=== PATIENT | female | born 1970 | race Caucasian/White ===

== ENCOUNTER 2020-04-12 10:10 | Emergency (ER) | payer MEDICARE, OTHER, SELFPAY ==
[2020-04-12] MEDS: TETANUS,DIPHTHERIA,AC PERTUSSIS ADULT (0.5 ML) BOOSTRIX IM (10:34)
[2020-04-12 10:35] VITALS: BP 117/62; PULSE 68; RESP 18; TEMP 36.7; O2SAT 100
--- NOTE | 2020-04-12 10:44 | ED.WOUNDLAC ---
HPI - Wound/Laceration General Chief Complaint: Wound/Laceration Stated Complaint: laceration right thumb Time Seen by Provider: 04/12/20 10:15 Source: patient and RN notes reviewed Mode of arrival: ambulatory Limitations: no limitations History of Present Illness HPI narrative: 49-year-old female presents concern for laceration to the first digit of the left hand that she sustained as prior to arrival, while she was pulling apart metal shelves she cut her hand on a metal shelf. Reports she is not up-to-date on her tetanus vaccination. She denies any decreased sensation, strength, range of motion of the digit. Denies any uncontrolled bleeding. Extremity Location: Left: hand Related Data Home Medications Medication Instructions Recorded Confirmed estradiol 1 mg PO DAILY 04/12/20 04/12/20 venlafaxine 75 mg PO DAILY 04/12/20 04/12/20 Allergies Allergy/AdvReac Type Severity Reaction Status Date / Time No Known Allergies Allergy Verified 04/12/20 10:15 Review of Systems Review of Systems: Narrative: CONSTITUTIONAL: Denies malaise, chills, sweats, or fever. SKIN: Reports laceration of first digit of left hand MUSCULOSKELETAL: Denies muscle skeletal pain, decreased range of motion NEUROLOGIC: Denies numbness, weakness All systems reviewed & are unremarkable except as noted in HPI and below PMFSH Social History Social History Gender identity (if verbalized by the patient): Female Comments At time of signature, agree with nursing past medical, surgical, social and family history. There is no relevant family history pertinent to the presenting complaint Exam Narrative: Exam Narrative: GENERAL: Well-appearing, well-nourished, and in no acute distress. HEAD: Normocephalic EYES: PERRLA, conjunctivae clear NECK: Supple. CHEST: Speaks in full sentences. No respiratory distress. HEART: Regular rate and rhythm. Normal and equal peripheral pulses. EXTREMITIES: Left hand and digits of hand have normal strength and sensation. 5/5 strength with digit flexion, extension. Range of motion normal. No clubbing, cyanosis, or edema noted. No tenderness. Normal digital cascade with flexion of fingers, median, ulnar and radial nerve intact. Normal sensation of each side of finger. Can perform 'okay' sign, 'cross over finger test of index and middle fingers' and 'thumbs up' sign. No scissoring. Normal thumb opposition. Good capillary refill and radial pulse. Distal capillary refill less than 3 seconds. SKIN: Warn, dry, intact, pink. 1.5 cm linear laceration, shallow into the subcutaneous tissue noted beneath the first digit of the left hand on the lateral edge, edges approximated, hemostasis achieved. NEURO: Alert and oriented x3. PSYCH: Normal mood and affect Course Course Emergency Course: Patient is aware of diagnosis, understands and agrees to treatment plan. Anticipatory guidance given. Patient agrees to follow-up as directed and is aware of reasons to seek care at the emergency department. Portions of this record may have been created with voice recognition software Vital Signs Vital signs: Vital Signs Temperature 98.0 F 04/12/20 10:35 Pulse Rate 68 04/12/20 10:35 Respiratory Rate 18 04/12/20 10:35 Blood Pressure 117/62 04/12/20 10:35 Pulse Oximetry 100 04/12/20 10:35 Temperature 98.0 F 04/12/20 10:35 Pulse Rate 68 04/12/20 10:35 Respiratory Rate 18 04/12/20 10:35 Blood Pressure 117/62 04/12/20 10:35 Pulse Oximetry 100 04/12/20 10:35 Reviewed. Procedures Laceration Laceration 1: Date: 04/12/20 Time: 10:25 Site: hand Side (If applicable): left Size (cm): 1.5 Description: linear Depth: simple, single layer Pre-repair: wound explored and irrigated ====== Skin Level ====== Skin layer closed with: dermabond ====== Subcutaneous Layer ====== ====== Muscle Layer ====== ====== Tendon Layer ====== MDM -
== END 2020-04-12 10:50 | disposition home or self-care (01) ==
PROVIDERS: Emergency Provider Nurse Practitioner
DX: S61.012A Laceration without foreign body of left thumb without damage to nail, initial encounter (principal); W45.8XXA Other foreign body or object entering through skin, initial encounter; Z23 Encounter for immunization; J45.909 Unspecified asthma, uncomplicated
CPT/HCPCS: 12001; 90471; 90715; 99212; G0463

== ENCOUNTER 2021-08-04 10:59 | Emergency (ER) | payer MEDICARE, OTHER, SELFPAY ==
--- NOTE | ~2021-08-04 | XR_ITS ---
XR ankle RT min 3V, XR ankle LT min 3V 08/04/2021 11:39 Indication: Bilateral ankle pain after fall Procedure: 4 views each ankle Comparison: No prior studies for comparison. Findings: No fracture, subluxation or dislocation. There is anatomic alignment. Ankle mortise intact. Small degenerative calcaneal enthesophytes. Impression: 1: No acute fracture. Reviewed, dictated and finalized at location B. Impression: 1: No acute fracture. Impression: 1: No acute fracture.
[2021-08-04 11:13] VITALS: BP 135/81; PULSE 79; RESP 16; TEMP 36.4; O2SAT 98
--- NOTE | 2021-08-04 11:35 | PC.NURSE ---
pt in xray
--- NOTE | 2021-08-04 12:38 | ED.LOWEXIN ---
HPI - Extremity Injury (Lower) General Chief Complaint: Extremity Injury, Lower Stated Complaint: fall, bilateral ankle injury Time Seen by Provider: 08/04/21 11:35 History of Present Illness HPI Narrative: 51-year-old female presents to the emergency room for evaluation of bilateral ankle pain. Patient states that she fell down 3 stairs, resulting in inversion injuries to both ankles. Patient states the left ankle is more painful than the right ankle. Related Data Home Medications Medication Instructions Recorded Confirmed estradiol 1 mg PO DAILY 04/12/20 04/12/20 venlafaxine 37.5 mg PO DAILY 08/04/21 Allergies Allergy/AdvReac Type Severity Reaction Status Date / Time No Known Allergies Allergy Verified 08/04/21 11:12 Review of Systems Review of Systems: CONSTITUTIONAL: Denies fever, chills, or sweats. EYES: Denies visual changes, redness, or discharge. ENT: Denies rhinorrhea, congestion, sore throat, or otalgia. CARDIOVASCULAR: Denies chest pain, palpitations, or edema. RESPIRATORY: Denies cough or dyspnea. GASTROINTESTINAL: Denies abdominal pain, nausea, vomiting, or diarrhea. GENITOURINARY: Denies dysuria or hematuria. SKIN: Denies rash or itching. MUSCULOSKELETAL: Reports bilateral ankle pain NEUROLOGIC: Denies headache, numbness, dizziness, or weakness. PSYCHIATRIC: Denies anxiety or depression. [facility] Social History Social History Gender identity (if verbalized by the patient): Female Exam Narrative: GENERAL: Well-appearing, well-nourished, and in no acute distress. HEAD: Normocephalic, atraumatic. EYES: PERRLA and EOMI. CHEST: Clear to auscultation. No respiratory distress. No wheezes rales or rhonchi HEART: Regular rate and rhythm. No murmur heard. Normal peripheral pulses. EXTREMITIES: left ankle: Tenderness and swelling lateral malleolus, no joint laxity, no bony abnormality, neurovascular is intact distally. Right ankle: Tenderness over the medial ligament, no bony tenderness or abnormality, no joint laxity neurovascular is intact distally SKIN: Warm, dry, no rash. NEURO: No focal deficits. Alert and oriented x3. PSYCH: Normal mood and affect. Course Vital Signs Vital signs: Vital Signs Temperature 36.4 C 08/04/21 11:13 Pulse Rate 79 08/04/21 11:13 Respiratory Rate 16 08/04/21 11:13 Blood Pressure 135/81 08/04/21 11:13 Pulse Oximetry 98 08/04/21 11:13 Temperature 36.4 C 08/04/21 11:13 Pulse Rate 79 08/04/21 11:13 Respiratory Rate 16 08/04/21 11:13 Blood Pressure 135/81 08/04/21 11:13 Pulse Oximetry 98 08/04/21 11:13 Discharge Plan Discharge Clinical Impression: Ankle sprain and strain Patient Disposition: Home, Self-Care Condition: Stable Instructions: Antibiotic Form Prescriptions: New naproxen 500 mg tablet 500 mg PO BID Qty: 20 RF: 0 No Action estradiol 1 mg tablet 1 mg PO DAILY RF: 0 venlafaxine 37.5 mg Capsule,Extended Release 24hr 37.5 mg PO DAILY RF: 0 Follow-up/Referrals: PHYSICIAN,[facility] [Primary Care Provider] -
== END 2021-08-04 12:50 | disposition home or self-care (01) ==
PROVIDERS: Emergency Provider Nurse Practitioner Family
DX: S93.402A Sprain of unspecified ligament of left ankle, initial encounter (principal); S96.912A Strain of unspecified muscle and tendon at ankle and foot level, left foot, initial encounter; S93.401A Sprain of unspecified ligament of right ankle, initial encounter; S96.911A Strain of unspecified muscle and tendon at ankle and foot level, right foot, initial encounter; W10.9XXA Fall (on) (from) unspecified stairs and steps, initial encounter
CPT/HCPCS: 73610; 99284

== ENCOUNTER 2023-01-24 09:49 | Outpatient (CLI) | payer MEDICARE, OTHER, SELFPAY ==
--- NOTE | ~2023-01-24 | XR_ITS ---
EXAMINATION: XR shoulder LT min 2V INDICATION: Chronic left shoulder pain TECHNIQUE: Four views of the left shoulder are submitted. COMPARISON: None FINDINGS: Normal alignment. No fracture. Glenohumeral and acromioclavicular joint spaces are normal. Soft tissues are unremarkable. IMPRESSION: 1. No acute osseous abnormality. Reviewed, dictated and finalized at location B. ROOM DANCER
== END 2023-01-24 09:50 | disposition home or self-care (01) ==
LOC: CHSIMG 09:53
PROVIDERS: PCP Nurse Practitioner Family; Visit Provider Nurse Practitioner Family
DX: M25.512 Pain in left shoulder (principal)
CPT/HCPCS: 73030

== ENCOUNTER 2023-01-30 07:34 | Outpatient (CLI) | payer MEDICARE, OTHER, SELFPAY ==
--- NOTE | ~2023-01-30 | US_ITS ---
US right upper quadrant DATE: 01/30/2023 08:05 INDICATION: Elevated liver enzymes TECHNIQUE: Real-time imaging of liver, pancreas, gallbladder COMPARISON: None FINDINGS: There is increased hepatic parenchymal echogenicity which may indicate hepatic steatosis. N o hepatic or pancreatic space-occupying mass lesion is detected. Normal hepatopedal portal venous barrera w direction. No gallstones or gallbladder wall thickening. Negative sonographic Beth's sign. The common bile duct measures 2.9 mm, normal. IMPRESSION: Suggestion of hepatic steatosis; otherwise unremarkable examination Reviewed, dictated and finalized at Location A. Reviewed, dictated and finalized at location L. D ROUTE BUS OPERATOR
--- NOTE | ~2023-01-30 | MM_ITS ---
EXAMINATION: MM screening adalgisa BI w joshua HISTORY: Screening mammogram TECHNIQUE: Craniocaudal and mediolateral oblique 3-D tomosynthesis images were obtained and synthetic 2-D images were generated. CAD analysis was submitted and interpreted. COMPARISON: No prior mammogram is available for comparison at this institution. BREAST PARENCHYMAL COMPOSITION: There are scattered areas of fibroglandular density. FINDINGS: RIGHT BREAST: There are obscured masses in the anterior and middle thirds of the lower inner breast. No suspicious calcification or architectural distortion are identified. LEFT BREAST: There are obscured masses in the anterior third of the outer breast. No suspicious calci fication or architectural distortion are identified. IMPRESSION: 1. Obscured bilateral breast masses. 2. Additional mammographic views and possible breast ultrasound are recommended. BI-RADS Category 0: Incomplete: Needs additional imaging evaluation. Reviewed, dictated and finalized at location A. F VETERINARIAN IMPRESSION: 1. Obscured bilateral breast masses. 2. Additional mammographic views and possible breast ultrasound are recommended . BI-RADS Category 0: Incomplete: Needs additional imaging evaluation.
== END 2023-01-30 07:35 | disposition home or self-care (01) ==
LOC: CHSIMG 07:36
PROVIDERS: PCP Nurse Practitioner Family; Visit Provider Nurse Practitioner Family
DX: Z12.31 Encounter for screening mammogram for malignant neoplasm of breast (principal); R74.8 Abnormal levels of other serum enzymes; R92.8 Other abnormal and inconclusive findings on diagnostic imaging of breast
CPT/HCPCS: 76705; 77063; 77067

== ENCOUNTER 2023-02-22 09:31 | Outpatient (CLI) | payer MEDICARE, OTHER, SELFPAY ==
--- NOTE | ~2023-02-22 | MMUS_ITS ---
EXAMINATION: MM diagnostic adalgisa BI w joshua, US breast BI limited HISTORY: Bilateral breast masses on screening mammogram TECHNIQUE: Additional 3-D tomosynthesis images of the breasts were performed and synthetic 2-D images were generated. CAD analysis was submitted and interpreted. High resolution limited bilateral breast ultrasound was performed. COMPARISON: 01/30/2023 FINDINGS: MAMMOGRAPHIC FINDINGS: Left breast: With spot compression, there are persistent low density, obscured masses in the anterior and middle third of the lower-outer breast seen at the 7:00 and 8:00 locations approximately 3 cm, 4 cm, and 6 cm from the nipple. None demonstrate suspicious architectural distortion. No associated ca lcification is identified. Right breast: There is a 1.8 x 0.7 cm oval, circumscribed, equal density mass in the anterior third o f the inner breast at the 3:00 location, 4 cm from the nipple. There is a 5 mm round, circumscribed, equal density mass in the middle third of inner breast at the 3:00 location, 7 cm from the nipple. ULTRASOUND: Left breast: No sonographic correlate is identified for the mammographically detected masses in the l ower outer left breast. Right breast: There is a there is a 1.5 x 0.8 cm oval, circumscribed, parallel, hypoechoic mass with posterior acoustic shadowing and no internal vascularity at the 3:00 location, 1 cm from the nipple. Additional small cysts are noted in the right breast near the nipple. IMPRESSION: 1. Probably benign bilateral breast masses. 2. Recommend 6 month follow-up bilateral diagnostic mammogram and possible ultrasound. BI-RADS category 3, probably benign findings. Reviewed, dictated and finalized at location A. MACY INFORMATICS MANAGER IMPRESSION: 1. Probably benign bilateral breast masses. 2. Recommend 6 month follow-up bilateral diagnostic mammogram and possible ultr asound. BI-RADS category 3, probably benign findings.
== END 2023-02-22 09:32 | disposition home or self-care (01) ==
LOC: CHSIMG 09:33
PROVIDERS: PCP Nurse Practitioner Family; Visit Provider Nurse Practitioner Family
DX: R92.8 Other abnormal and inconclusive findings on diagnostic imaging of breast (principal)
CPT/HCPCS: 76642; 77062; 77066; G0279

== ENCOUNTER 2023-09-13 09:29 | Outpatient (CLI) | payer MEDICARE, OTHER, SELFPAY ==
--- NOTE | ~2023-09-13 | MMUS_ITS ---
EXAMINATION: MM diagnostic adalgisa BI w joshua, US breast RT limited HISTORY: Six-month follow-up TECHNIQUE: 3-D tomosynthesis images of the bilateral breasts were performed and synthetic 2-D images were generated. CAD analysis was submitted and interpreted. High resolution limited right breast ultr asound was performed. COMPARISON: 01/30/2023, 02/22/2023 FINDINGS: MAMMOGRAPHIC FINDINGS: There are scattered fibroglandular densities. Parenchymal pattern of both breasts is unchanged. Small low-density circumscribed bilateral breast ma sses are unchanged. No suspicious mass lesion or distortion seen. No suspicious metabolic ossificatio n. ULTRASOUND: At the 3:00 position right breast, 1 cm from the nipple, there is a stable 1.4 x 1.7 x 0.6 cm circums cribed, wider than tall hypoechoic mass. IMPRESSION: No evidence for malignancy. Stable benign-appearing mammographic and sonographic masses, as detailed above. BI-RADS Category 2: Benign finding(s). Reviewed, dictated and finalized at location M. IMPRESSION: No evidence for malignancy. Stable benign-appearing mammographic and sonograph ic masses, as detailed above. BI-RADS Category 2: Benign finding(s).
== END 2023-09-13 09:30 | disposition home or self-care (01) ==
LOC: CHSIMG 09:32
PROVIDERS: PCP Nurse Practitioner Family; Visit Provider Nurse Practitioner Family
DX: R92.8 Other abnormal and inconclusive findings on diagnostic imaging of breast (principal)
CPT/HCPCS: 76642; 77062; 77066; G0279

== ENCOUNTER 2024-04-06 22:36 | Emergency (ER) | payer MEDICARE, SELFPAY ==
--- NOTE | ~2024-04-06 | XR_ITS ---
Right Hand Technique: PA, oblique, and lateral views were obtained. Clinical History: Puncture wound Findings: No acute fracture or dislocation is seen. Osseous alignment is anatomic. Joint spaces are p reserved. Soft tissues are unremarkable. Impression: Unremarkable right hand. Reviewed, dictated and finalized at location . RTATION OFFICER Impression: Unremarkable right hand.
[2024-04-06 22:38] VITALS: BP 126/81; PULSE 79; RESP 18; TEMP 35.9; O2SAT 100
--- NOTE | 2024-04-06 22:49 | ED_ITS ---
HPI - Extremity Injury (Upper) General Chief Complaint: Extremity Injury, Upper Stated Complaint: upper extremity injury Source: patient Mode of arrival: ambulatory Limitations: no limitations History of Present Illness HPI narrative: 53 years old white female came to the ED with bruises, discoloration at the dorsal side of the right hand started 5 days ago. Patient accidentally stabbed the palmar side of the right hand 5 days ago with a pointed object. Had some bleeding at that time, subsequently started having bruises at the dorsal side. Patient denies any fever, chills, nausea vomiting. Patient is able to make fist without any discomfort. Unknown last tetanus shot Related Data Home Medications ?Medication ?Instructions ?Recorded ?Confirmed ?Last Taken ?Type estradiol 1 mg tablet 1 mg PO DAILY 04/12/20 04/12/20 Unknown History venlafaxine 37.5 mg 37.5 mg PO DAILY 08/04/21 Unknown History capsule,extended release 24 hr Allergies Allergy/AdvReac Type Severity Reaction Status Date / Time No Known Allergies Allergy Verified 04/06/24 22:45 Review of Systems Review of Systems: All systems reviewed & are unremarkable except as noted in HPI and below PMFSH Social History Social History Gender identity (if verbalized by the patient): Female Exam Narrative: General appearance: Well-developed, well-nourished Skin: Normal color Head: Normocephalic, nontraumatic Vascular: Normal peripheral pulses, normal capillary refill. Musculoskeletal: right hand exam showed different discoloration at the dorsal side including brownish, greenish, yellowish indicating resolving hematoma. No warmth, no discharge, no localized tenderness. Patient is able to move fingers without restriction. Neurologic: Alert and oriented ?3, QUALITY MANAGEMENT COORDINATOR is normal as tested, no gross motor deficit Course Vital Signs Vital signs: Vital Signs Temperature 35.9 C L 04/06/24 22:38 Pulse Rate 79 04/06/24 22:38 Respiratory Rate 18 04/06/24 22:38 Blood Pressure 126/81 04/06/24 22:38 Pulse Oximetry 100 04/06/24 22:38 Oxygen Delivery Room Air 04/06/24 22:38 Temperature 35.9 C L 04/06/24 22:38 Pulse Rate 79 04/06/24 22:38 Respiratory Rate 18 04/06/24 22:38 Blood Pressure 126/81 04/06/24 22:38 Pulse Oximetry 100 04/06/24 22:38 Oxygen Delivery Room Air 04/06/24 22:38 Critical Care Time Critical Care Time Critical Care Time: No Discharge Plan Discharge Clinical Impression: Contusion of dorsum of right hand Patient Disposition: Home, Self-Care Condition: Stable Instructions: Hematoma (ED) Additional Instructions: Return if symptoms are worsening , call your family physician for appointment, take Tylenol, ibuprofen as as needed for aches and pain, continue home medications., keep hand elevated Patient Language: Haitian Prescriptions: No Action estradiol 1 mg tablet 1 mg PO DAILY venlafaxine 37.5 mg Capsule,Extended Release 24hr 37.5 mg PO DAILY naproxen 500 mg tablet 500 mg PO BID Qty: 20 0RF Follow-up/Referrals: Markus,Angus Austin, [facility] [Primary Care Provider] -
[2024-04-06] MEDS: TETANUS,DIPHTHERIA,AC PERTUSSIS ADULT 0.5 ML (ADACEL) IM (23:02)
== END 2024-04-06 23:25 | disposition home or self-care (01) ==
PROVIDERS: Emergency Provider Emergency Medicine; PCP Nurse Practitioner Family
DX: S60.221A Contusion of right hand, initial encounter (principal); Z23 Encounter for immunization; W22.8XXA Striking against or struck by other objects, initial encounter
CPT/HCPCS: 73130; 90471; 90715; 99283